=== PATIENT | female | born 1935 | race Caucasian/White ===

== ENCOUNTER 2017-01-02 21:30 | Inpatient (IN) | payer MEDICARE, OTHER ==
--- NOTE | ~2017-01-02 | HP ---
History And Physical [place] [address] [facility] [place]. [address] NAME: PERNELL NICHOLS : 33 STATUS : ADM IN [facility]#: [id number] AGE: 81 ADM/REG DATE : 01/03/17 MR#: [id number] REPORT SERV DATE: 01/03/17 DICTATED BY: MOUSTAPHA ALCANTAR DATE: 01/03/17 REPORT STATUS : Draft TRANSCRIBED BY: MODL DATE: 01/03/17 DATE OF ADMISSION: 01/02/2017 HISTORY OF PRESENT ILLNESS: The patient is a pleasant 81-year-old white female with a history of hypertension, breast cancer, and thyroid disease, who presented to the emergency department with complaints of some chest discomfort and cough and weakness last evening. She was found to be in atrial fibrillation with a rapid ventricular response and has since converted back to sinus rhythm on a Cardizem drip. The patient reports a two-day history of productive cough and had begun noticing some mild chest discomfort with deep inspiration yesterday. She also had a low-grade fever two days ago of 100.8. The patient also reports falling yesterday while taking her garbage out. She denies any lightheadedness or presyncope, but states that she tripped over the garbage can. She now complains of some musculoskeletal soreness particularly in her knees, but otherwise denies any current complaints. PAST MEDICAL HISTORY: Significant for hypertension, breast cancer, thyroidectomy, hysterectomy, bilateral knee replacements, meningioma resection in 1989, as well as gastroesophageal reflux disease. She also has a history of benign ventricular ectopy and had a normal nuclear scan in 07/2014. SOCIAL HISTORY: The patient is . She has no history of tobacco use. FAMILY HISTORY: Positive for coronary artery disease in her mother, sister, and son. REVIEW OF SYSTEMS: The complains of a productive cough over the past two to three days as well as a low-grade fever. She denies any nausea, vomiting, diarrhea, or dysuria. No dyspnea on exertion or any chest pain prior to the current illness. No history of syncope or presyncope. The patient does not recall any recent sick contacts. PHYSICAL EXAMINATION: VITAL SIGNS: Blood pressure is 141/64, heart rate 83 and regular, respirations 18 and nonlabored. Currently, the patient is afebrile, though she has had a very mild low-grade temperature up to 99.4. GENERAL APPEARANCE: The patient is a well-developed, well-nourished, elderly female, in no acute distress. HEENT: Unremarkable. NECK: No jugular venous distention with good carotid upstroke. No carotid bruit is appreciated. CHEST: Mostly clear bilaterally with perhaps some faint expiratory wheezes on the left. CARDIOVASCULAR: PMI is nondisplaced. S1 is normal. S2 is narrowly split. ABDOMEN: Soft and nontender with normal bowel sounds. EXTREMITIES: No cyanosis, clubbing, or edema. SKIN: Warm and dry with no pallor or icterus. NEURO/PSYCH: The patient is alert and oriented x3 with appropriate affect. History And Physical [address] [address] NAME: PERNELL NICHOLS : 33 STATUS : ADM IN [facility]#: [id number] AGE: 81 ADM/REG DATE : 01/03/17 MR#: [id number] REPORT SERV DATE: 01/03/17 DICTATED BY: MOUSTAPHA ALCANTAR DATE: 01/03/17 REPORT STATUS : Draft TRANSCRIBED BY: RACHEL DATE: 01/03/17 LABORATORY AND DIAGNOSTIC DATA: EKG shows atrial fibrillation at a rate of [address]-T changes, but is otherwise unremarkable. Chemistry profile shows a sodium of 138, potassium 3.7, BUN 16, creatinine 1.27, magnesium 1.7. Troponin was less than 0.02. Chest x-ray showed borderline cardiomegaly and a large hiatal hernia, but was otherwise unremarkable. Echocardiogram shows left ventricular ejection fraction of 50% with no significant valvular disease. There is a small to moderate pericardial effusion without evidence of tamponade. IMPRESSION: 1. Paroxysmal atrial fibrillation. 2. Pericardial effusion. 3. Pleuritic type chest pain. 4. Upper respiratory infection most likely viral in etiology. 5. Hypertension. PLAN: 1. Wean Cardizem drip off and add Lopressor. 2. We will keep the patient overnight again for observation and check morning labs including a procalcitonin. 3. Give ibuprofen p.r.n. 4. The patient will need to return for a followup limited echo in approximately one week to evaluate her pericardial effusion. JAYLEN/DOREENL Moustapha Alcantar NP / [id number] CC: Emerson Rose M.D., F.AYanira Rothman II, M.D.
[2017-01-02 19:38] LABS: BASOPHILS 0.3 %; BASOPHILS ABSOLUTE 0.02 10/3/uL (0.0-0.16); EOSINOPHILS 0.2 %; EOSINOPHILS ABSOLUTE 0.01 10/3/uL (0.0-0.53); ER CBC TAT 0 Hrs 03 Mins; HEMOGLOBIN 11.9 g/dL (12.0-16.0); IMMATURE GRANULOCYTES 0.3 %; IMMATURE GRANULOCYTES ABSOLUTE 0.02 10/3/uL (0.0-0.11); LYMPHOCYTES 8.5 %; LYMPHOCYTES ABSOLUTE 0.53 10/3/uL (0.67-4.30); MEAN CORPUS HGB CONC 33.2 g/dL (32.0-36.0); MEAN CORPUSCULAR HEMOGLOB 29.5 pg (26.0-34.0); MEAN CORPUSCULAR VOLUME 88.6 fL (80-100); MEAN PLATELET VOLUME 8.7 fL (9.2-13.0); MONOCYTES 8.5 %; MONOCYTES ABSOLUTE 0.53 10/3/uL (0.21-1.20); NEUTROPHILS 82.2 %; NEUTROPHILS ABSOLUTE 5.15 10/3/uL (2.02-8.40); PLATELET COUNT 217 10/3/uL (150-400); RBC DISTRIBUTION WIDTH 13.4 % (12.0-16.0); RED CELL COUNT 4.04 10/6/uL (4.0-5.6); WHITE BLOOD CELLS 6.3 10/3/uL (4.5-10.5)
[2017-01-02 19:46] LABS: HEMATOCRIT 35.8 % (36.0-48.0); MANUAL DIFF NO %
[2017-01-02 19:54] LABS: BUN (BLOOD UREA NITROGEN) 16 MG/DL (6-23); CALCIUM, SERUM 8.9 MG/DL (8.5-10.4); CHEST PAIN PROFILE TAT 0 Hrs 19 Mins; CHLORIDE, SERUM 101 MMOL/L (96-112); CO2 (CARBON DIOXIDE) 24 MMOL/L (24-34); CREATININE 1.27 MG/DL (0.55-1.02); GFR AFRICAN AMERICAN 46 ML/MIN (>=60); GFR NON AFRICAN AMERICAN 39 ML/MIN (>=60); GLUCOSE, SERUM 101 MG/DL (60-99); POTASSIUM, SERUM 3.7 MMOL/L (3.5-5.3); SODIUM, SERUM 138 MMOL/L (135-148); TROPONIN I <0.02 NG/ML (<0.05)
[~2017-01-02 21:30] MED LIST: ACET500CAP PO; AFRIN15 NAS; ARIMIDEX1 PO; CIP2 PO; CLARIT10 PO; DURICEF PO; ESTRACE1 MG PO; KLOR-CON M2020 MEQ PO; LIBRAX PO; MAXZIDE PO; METPAKSF PO; MYLANTA PO; MYLANTA ULTR1 TAB OR; NORV5 PO; PEP20 PO; PROTONIX PO; VITD PO
[2017-01-02] MEDS ORDERED: KLOR-CON M2020 MEQ PO (22:22)
[2017-01-02] MEDS ORDERED: NORV5 PO (22:23)
[2017-01-02] MEDS ORDERED: CLARIT10 PO (22:23)
[2017-01-02] MEDS ORDERED: PROTONIX PO (22:24)
[2017-01-02] MEDS ORDERED: LIBRAX PO (22:25)
[2017-01-02] MEDS ORDERED: MYTAB GAS125 MG PO (22:26)
[2017-01-02] MEDS ORDERED: GAS-X80 MG PO (22:27)
[2017-01-02] MEDS ORDERED: MYLANTA PO (22:27)
[2017-01-02] MEDS ORDERED: ACET500CAP PO (22:27)
[2017-01-02] MEDS ORDERED: AMOXIL500 MG PO (22:31)
[2017-01-02] MEDS ORDERED: PEP20 PO (22:36)
[2017-01-02 22:55] LABS: INTERNATIONAL NORMAL RATI 1.1 UNITS (-)
[2017-01-02 22:56] LABS: PARTIAL THROMBO TIME 28.9 SEC (22.5-37.2)
[2017-01-02 22:59] LABS: PROTIME (NOT ORD) 14.1 SEC (12.0-14.5)
[2017-01-04 05:35] LABS: BASOPHILS 0.3 %; BASOPHILS ABSOLUTE 0.01 10/3/uL (0.0-0.16); EOSINOPHILS 0 %; HEMATOCRIT 37.6 % (36.0-48.0); HEMOGLOBIN 12.2 g/dL (12.0-16.0); IMMATURE GRANULOCYTES 0.3 %; IMMATURE GRANULOCYTES ABSOLUTE 0.01 10/3/uL (0.0-0.11); LYMPHOCYTES 24.5 %; LYMPHOCYTES ABSOLUTE 0.86 10/3/uL (0.67-4.30); MEAN CORPUS HGB CONC 32.4 g/dL (32.0-36.0); MEAN CORPUSCULAR HEMOGLOB 28.8 pg (26.0-34.0); MEAN CORPUSCULAR VOLUME 88.9 fL (80-100); MEAN PLATELET VOLUME 8.9 fL (9.2-13.0); MONOCYTES 14.8 %; MONOCYTES ABSOLUTE 0.52 10/3/uL (0.21-1.20); NEUTROPHILS 60.1 %; NEUTROPHILS ABSOLUTE 2.11 10/3/uL (2.02-8.40); PLATELET COUNT 199 10/3/uL (150-400); RBC DISTRIBUTION WIDTH 13.3 % (12.0-16.0); RED CELL COUNT 4.23 10/6/uL (4.0-5.6)
[2017-01-04 05:36] LABS: MANUAL DIFF NO %; WHITE BLOOD CELLS 3.5 10/3/uL (4.5-10.5)
[2017-01-04 05:48] LABS: A/G RATIO 0.8 (0.7-1.9); ALBUMIN 2.8 G/DL (3.5-5.0); BUN (BLOOD UREA NITROGEN) 16 MG/DL (6-23); CALCIUM, SERUM 8.4 MG/DL (8.5-10.4); CHLORIDE, SERUM 106 MMOL/L (96-112); CO2 (CARBON DIOXIDE) 25 MMOL/L (24-34); CREATININE 1.24 MG/DL (0.55-1.02); GFR AFRICAN AMERICAN 47 ML/MIN (>=60); GFR NON AFRICAN AMERICAN 40 ML/MIN (>=60); GLOBULIN 3.6 G/DL (2.5-4.1); GLUCOSE, SERUM 84 MG/DL (60-99); POTASSIUM, SERUM 3.3 MMOL/L (3.5-5.3); SGOT(AST) 33 U/L (5-40); SGPT(ALT) 15 U/L (5-65); SODIUM, SERUM 140 MMOL/L (135-148); TOTAL BILIRUBIN 0.2 MG/DL (0-1.2); TOTAL PROTEIN 6.4 G/DL (6.0-8.5)
[2017-01-04 05:53] LABS: ALKALINE PHOSPHATASE 97 U/L (45-117)
[2017-01-04 06:29] LABS: PROCALCITONIN <0.05 ng/mL (<0.5)
[2017-01-04] MEDS ORDERED: LOP25 PO (11:14)
[2017-01-04] MEDS ORDERED: OMNICEF300 PO (11:19)
[2017-01-04] MEDS ORDERED: ASAB PO (11:20)
== END 2017-01-04 12:05 | disposition home or self-care (01) | DRG 309 ==
LOC: ER 21:30 → CDU1 21:36 → CDU2 22:51
PROVIDERS: Emergency Medicine; Nurse Practitioner Family
DX: I48.0 Paroxysmal atrial fibrillation (principal); I31.3 Pericardial effusion (noninflammatory); I10 Essential (primary) hypertension; J40 Bronchitis, not specified as acute or chronic; E89.0 Postprocedural hypothyroidism; K21.9 Gastro-esophageal reflux disease without esophagitis; Z96.653 Presence of artificial knee joint, bilateral; Z90.710 Acquired absence of both cervix and uterus; Z79.01 Long term (current) use of anticoagulants; Z85.3 Personal history of malignant neoplasm of breast
CPT/HCPCS: 71020; 80048; 80053; 83735; 84145; 84484; 85025; 85610; 85730; 93005; 93306; 99285; A9270-GY